=== PATIENT | female | born 1945 | race Two or more races ===

== ENCOUNTER 2019-06-11 10:13 | Outpatient (CLI) | payer OTHER | END 2019-06-11 10:21 | disposition home or self-care (01) | LOC: TOM 10:13 | DX: K56.50 Intestinal adhesions [bands], unspecified as to partial versus complete obstruction (principal); K56.609 Unspecified intestinal obstruction, unspecified as to partial versus complete obstruction; K56.690 Other partial intestinal obstruction ==

== ENCOUNTER 2023-05-12 07:52 | Outpatient (CLI) | payer OTHER | END 2023-05-12 07:54 | disposition home or self-care (01) | LOC: RAD 07:52 | PROVIDERS: ATTEND Urology | DX: N20.0 Calculus of kidney (principal) ==